=== PATIENT | female | born 1985 | race African-American/Black ===

== ENCOUNTER 2018-04-04 21:18 | Inpatient (IN) | payer OTHER ==
[2018-04-04] MEDS ORDERED: BISACODYL (EC) 5 MG TAB PO (22:00)
[2018-04-04] MEDS ORDERED: DOCUSATE SODIUM 100 MG CAP PO (22:00)
[2018-04-04] MEDS ORDERED: NACL 0.9% 3 ML SYG IV (22:00)
[2018-04-04] MEDS ORDERED: VANCOMYCIN IV PER PHARMACY XX (22:00)
[2018-04-04] MEDS: HYDROCODONE/APAP (5/325) TAB PO (22:16)
[2018-04-04 23:04] LABS: ADD MAN DIFF? NO
[2018-04-04 23:07] LABS: BASOPHILS % 0.4 % (0.0-2.0); EOSINOPHILS # 0.1 10^3/ul (0.0-0.5); EOSINOPHILS % 1.7 % (0.0-7.0); HEMATOCRIT 29.2 % (37.0-47.0); HEMOGLOBIN 8.8 g/dl (12.0-16.0); LYMPHOCYTES # 2.8 10^3/ul (0.8-2.9); LYMPHOCYTES % 36.1 % (15.0-51.0); MEAN CORPUSCULAR HEMOGLOBIN 30.1 pg (29.0-33.0); MEAN CORPUSCULAR HGB CONC 30.1 g/dl (32.0-37.0); MEAN PLATELET VOLUME 8.9 fl (7.4-10.4); MONOCYTE # 0.6 10^3/ul (0.3-0.9); MONOCYTES % 7.8 % (0.0-11.0); NEUTROPHIL # 4.1 10^3/ul (1.6-7.5); NEUTROPHILS % 53.2 % (39.0-77.0); PLATELET COUNT 660 10^3/UL (140-415); RED BLOOD COUNT 2.92 10^6/ul (4.20-5.40); RED CELL DISTRIBUTION WIDTH 17.5 % (11.5-14.5)
[2018-04-04 23:07] LABS: WHITE BLOOD COUNT 7.7 10^3/ul (4.8-10.8)
[2018-04-04 23:21] LABS: LACTIC ACID 1.7 mmol/L (0.5-2.0)
[2018-04-04 23:33] LABS: ALANINE AMINOTRANSFERASE 51 IU/L (13-69); ALBUMIN 3.1 g/dl (3.3-4.9); ALKALINE PHOSPHATASE 197 IU/L (42-121); ANION GAP 11 (8-16); ASPARTATE AMINO TRANSFERASE 46 IU/L (15-46); BILIRUBIN,INDIRECT 0.3 mg/dl (0-1.1); BILIRUBIN,TOTAL 0.3 mg/dl (0.2-1.3); BLOOD UREA NITROGEN 4 mg/dl (7-20); CALCIUM 8.9 mg/dl (8.4-10.2); CARBON DIOXIDE 28 mmol/L (21-31); CHLORIDE 107 mmol/L (97-110); CREATININE 0.64 mg/dl (0.44-1.00); GLUCOSE 88 mg/dl (70-220); POTASSIUM 4.4 mmol/L (3.5-5.1); SODIUM 142 mmol/L (135-144); TOTAL PROTEIN 6.2 g/dl (6.1-8.1)
[2018-04-05] MEDS: VANCOMYCIN 1.25 GM in SOD CHLORIDE 0.9% 250 ML IVPB ×3 (00:44→15:59)
[2018-04-05] MEDS: HYDROCODONE/APAP (5/325) TAB PO ×2 (04:36→09:51)
[2018-04-05] MEDS: CARISOPRODOL 350 MG TAB PO ×2 (07:33→13:26)
[2018-04-05 07:40] LABS: ADD MAN DIFF? NO
[2018-04-05 07:44] LABS: BASOPHILS % 0.4 % (0.0-2.0); EOSINOPHILS # 0.2 10^3/ul (0.0-0.5); EOSINOPHILS % 1.9 % (0.0-7.0); HEMATOCRIT 30.7 % (37.0-47.0); HEMOGLOBIN 9.3 g/dl (12.0-16.0); LYMPHOCYTES # 3.2 10^3/ul (0.8-2.9); LYMPHOCYTES % 40.6 % (15.0-51.0); MEAN CORPUSCULAR HEMOGLOBIN 30.3 pg (29.0-33.0); MEAN CORPUSCULAR HGB CONC 30.3 g/dl (32.0-37.0); MONOCYTE # 0.6 10^3/ul (0.3-0.9); MONOCYTES % 7.5 % (0.0-11.0); NEUTROPHIL # 3.9 10^3/ul (1.6-7.5); NEUTROPHILS % 48.8 % (39.0-77.0); PLATELET COUNT 755 10^3/UL (140-415); RED BLOOD COUNT 3.07 10^6/ul (4.20-5.40); RED CELL DISTRIBUTION WIDTH 17.5 % (11.5-14.5)
[2018-04-05 08:08] LABS: ALANINE AMINOTRANSFERASE 52 IU/L (13-69); ALBUMIN 3.6 g/dl (3.3-4.9); ALKALINE PHOSPHATASE 231 IU/L (42-121); ANION GAP 13 (8-16); ASPARTATE AMINO TRANSFERASE 50 IU/L (15-46); BILIRUBIN,INDIRECT 0.4 mg/dl (0-1.1); BILIRUBIN,TOTAL 0.4 mg/dl (0.2-1.3); BLOOD UREA NITROGEN 6 mg/dl (7-20); CALCIUM 9.1 mg/dl (8.4-10.2); CARBON DIOXIDE 26 mmol/L (21-31); CHLORIDE 106 mmol/L (97-110); CHOL/HDL RATIO 3.2 RATIO; CHOLESTEROL 194 mg/dl (100-200); CREATININE 0.71 mg/dl (0.44-1.00); GLUCOSE 97 mg/dl (70-220); HDL CHOLESTEROL 60 mg/dl (34-82); LDL CHOLESTEROL,CALCULATED 103 mg/dl; MAGNESIUM 1.8 mg/dl (1.7-2.5); POTASSIUM 4.1 mmol/L (3.5-5.1); SODIUM 141 mmol/L (135-144); TOTAL PROTEIN 7.2 g/dl (6.1-8.1); TRIGLYCERIDES 154 mg/dl (0-149)
[2018-04-05 08:20] LABS: HEMOGLOBIN A1C 4.9 % (0-5.9)
[2018-04-05] MEDS: HYDROCHLOROTHIAZIDE 12.5 MG CAP PO (09:50)
[2018-04-05] MEDS ORDERED: DIPHENHYDRAMINE 25 MG CAP PO (10:00)
[2018-04-05] MEDS: SOD CHLORIDE 0.9% 100 ML (13:47)
[2018-04-05] MEDS: IOHEXOL 300MG/ML 150 ML BTL (13:48)
[2018-04-05] MEDS: HYDROmorphONE 2 MG TAB PO ×3 (14:22→20:55)
[2018-04-05] MEDS: ACETAMINOPHEN 325 MG TAB PO (17:21)
[2018-04-05] MEDS: ALPRAZOLAM 0.25 MG TAB PO (22:16)
[2018-04-06 00:35] LABS: VANCOMYCIN,TROUGH 13.2 ug/ml (10.0-20.0)
[2018-04-06] MEDS: VANCOMYCIN 1.25 GM in SOD CHLORIDE 0.9% 250 ML IVPB ×3 (00:50→15:21)
[2018-04-06] MEDS: HYDROmorphONE 2 MG TAB PO ×6 (02:40→21:24)
[2018-04-06] MEDS: HYDROCHLOROTHIAZIDE 12.5 MG CAP PO (06:00)
[2018-04-06] MEDS: ENOXAPARIN 40 MG/0.4 ML SYG SC (09:29)
[2018-04-06 10:38] LABS: ADD MAN DIFF? NO
[2018-04-06 10:42] LABS: BASOPHILS % 0.3 % (0.0-2.0); EOSINOPHILS # 0.2 10^3/ul (0.0-0.5); EOSINOPHILS % 2.9 % (0.0-7.0); HEMATOCRIT 29.1 % (37.0-47.0); LYMPHOCYTES # 2.2 10^3/ul (0.8-2.9); LYMPHOCYTES % 37.7 % (15.0-51.0); MEAN CORPUSCULAR HEMOGLOBIN 30.6 pg (29.0-33.0); MEAN CORPUSCULAR HGB CONC 30.9 g/dl (32.0-37.0); MEAN PLATELET VOLUME 8.7 fl (7.4-10.4); MONOCYTE # 0.6 10^3/ul (0.3-0.9); MONOCYTES % 10.2 % (0.0-11.0); NEUTROPHIL # 2.8 10^3/ul (1.6-7.5); NEUTROPHILS % 48.2 % (39.0-77.0); PLATELET COUNT 662 10^3/UL (140-415); RED BLOOD COUNT 2.94 10^6/ul (4.20-5.40); RED CELL DISTRIBUTION WIDTH 16.8 % (11.5-14.5)
[2018-04-06 10:42] LABS: WHITE BLOOD COUNT 5.8 10^3/ul (4.8-10.8)
[2018-04-06 11:00] LABS: ALANINE AMINOTRANSFERASE 45 IU/L (13-69); ALBUMIN 3.4 g/dl (3.3-4.9); ALBUMIN/GLOBULIN RATIO 1.17; ALKALINE PHOSPHATASE 203 IU/L (42-121); ANION GAP 10 (8-16); ASPARTATE AMINO TRANSFERASE 56 IU/L (15-46); BILIRUBIN,INDIRECT 0.5 mg/dl (0-1.1); BILIRUBIN,TOTAL 0.5 mg/dl (0.2-1.3); BLOOD UREA NITROGEN 5 mg/dl (7-20); CALCIUM 9.1 mg/dl (8.4-10.2); CARBON DIOXIDE 30 mmol/L (21-31); CHLORIDE 105 mmol/L (97-110); CREATININE 0.59 mg/dl (0.44-1.00); GLUCOSE 103 mg/dl (70-220); MAGNESIUM 1.7 mg/dl (1.7-2.5); PHOSPHORUS 4.1 mg/dl (2.5-4.9); POTASSIUM 3.9 mmol/L (3.5-5.1); SODIUM 141 mmol/L (135-144); TOTAL PROTEIN 6.3 g/dl (6.1-8.1)
[2018-04-06] MEDS: ONDANSETRON 4 MG INJ IV (16:42)
[2018-04-06] MEDS: ACETAMINOPHEN 325 MG TAB PO (19:51)
[2018-04-06] MEDS: FERROUS SULFATE (EC) 325 MG TAB PO (21:24)
[2018-04-06] MEDS: ALPRAZOLAM 0.25 MG TAB PO (23:25)
[2018-04-06] MEDS: TRIMETHOPRIM/SULFAMETHOX (DS) TAB PO (23:25)
[2018-04-07] MEDS: HYDROmorphONE 2 MG TAB PO ×2 (05:21→09:10)
[2018-04-07] MEDS: HYDROCHLOROTHIAZIDE 12.5 MG CAP PO (05:21)
[2018-04-07] MEDS: FERROUS SULFATE (EC) 325 MG TAB PO (09:10)
[2018-04-07] MEDS: ENOXAPARIN 40 MG/0.4 ML SYG SC (09:57)
== END 2018-04-07 13:25 | disposition home or self-care (01) | DRG 863 ==
LOC: 2NE 21:18
DX: T81.4XXA Infection following a procedure, initial encounter (principal); L76.34 Postprocedural seroma of skin and subcutaneous tissue following other procedure; L03.115 Cellulitis of right lower limb; L03.116 Cellulitis of left lower limb; I10 Essential (primary) hypertension; F41.9 Anxiety disorder, unspecified; Y84.8 Other medical procedures as the cause of abnormal reaction of the patient, or of later complication, without mention of misadventure at the time of the procedure; Y92.89 Other specified places as the place of occurrence of the external cause; Z98.890 Other specified postprocedural states
CPT/HCPCS: 73700; 74177; 80053; 80061; 80202; 83036; 83605; 83735; 84100; 84443; 85025